=== PATIENT | male | born 1965 | race Caucasian/White ===

== ENCOUNTER → 2017-03-06 | Outpatient (CLI) | payer OTHER ==
[2017-03-06 11:14] LABS: PROLACTIN 6.31 ng/mL
== END | disposition home or self-care (01) ==
LOC: C.LAB1850 09:44
PROVIDERS: ATTEND Internal Medicine Endocrinology, Diabetes & Metabolism
DX: R61 Generalized hyperhidrosis (principal); R68.82 Decreased libido